=== PATIENT | female | born 1985 | race Two or more races ===

== ENCOUNTER 2021-03-29 06:52 | Emergency (ER) | payer OTHER ==
[2021-03-29 07:27] VITALS: BP 104/71; PULSE 97; TEMP 98; BMI 25.4
[2021-03-29] MEDS ORDERED: KETOROLAC TROMETHAMINE 30 MG/1 ML VIAL ONE (07:42)
[2021-03-29] MEDS ORDERED: KETOROLAC TROMETHAMINE 30 MG/1 ML VIAL IM ONE (08:10)
[2021-03-29] MEDS ORDERED: LIDOCAINE HCL 1%, 10 MG/ML (50 mL VIAL) SQ ONE (08:38)
== END 2021-03-29 08:30 | disposition home or self-care (01) ==
LOC: JER 06:52
PROC: 0W9N0ZZ Drainage of Female Perineum, Open Approach (ICD-10-PCS; principal; 2021-03-29)
PROC: 3E0233Z Introduction of Anti-inflammatory into Muscle, Percutaneous Approach (ICD-10-PCS; 2021-03-29)
DX: N76.4 Abscess of vulva (principal)
CPT/HCPCS: 99284-25

== ENCOUNTER 2021-03-31 10:39 | Emergency (ER) | payer OTHER ==
[2021-03-31 10:56] VITALS: BP 120/81; PULSE 87; TEMP 98.6; BMI 26.0
[2021-03-31] MEDS ORDERED: BACITRACIN 15 GM TUBE TOPICAL OINTMENT ONE (11:25)
[2021-03-31] MEDS ORDERED: BACITRACIN 15 GM TUBE TOPICAL OINTMENT TP ONE (11:29)
== END 2021-03-31 11:31 | disposition home or self-care (01) ==
LOC: JERFT 10:39 → JER 10:39 → JERFT 11:31
DX: Z48.00 Encounter for change or removal of nonsurgical wound dressing (principal)
CPT/HCPCS: 99281-25

== ENCOUNTER 2022-10-23 21:22 | Emergency (ER) | payer OTHER ==
[2022-10-23 22:11] VITALS: BP 118/79; PULSE 74; RESP 18; TEMP 98.1; BMI 23.6
[2022-10-23] MEDS ORDERED: ACETAMINOPHEN 500 MG TABLET (FP) PO ONE (22:26)
[2022-10-23] MEDS ORDERED: ACETAMINOPHEN 500 MG TABLET (FP) ONE (22:39)
[2022-10-23 22:58] LABS: URINE APPEARANCE CLEAR; URINE BILIRUBIN NEGATIVE (NEGATIVE); URINE COLOR YELLOW; URINE GLUCOSE (UA) NEGATIVE (NEGATIVE); URINE KETONE NEGATIVE (NEGATIVE); URINE LEUK ESTERASE NEGATIVE (NEGATIVE); URINE NITRITE NEGATIVE (NEGATIVE); URINE PROTEIN NEGATIVE (NEGATIVE); URINE UROBILINOGEN 0.2 mg/dL (0.2-1.0)
[2022-10-23 23:01] LABS: HCG,QUALITATIVE URINE Negative
[2022-10-23] MEDS ORDERED: SULFAMETHOXAZOLE/TRIMETHOPRIM 800MG/160MG D.S. TABLET PO ONE (23:12)
[2022-10-23] MEDS ORDERED: SULFAMETHOXAZOLE/TRIMETHOPRIM 800MG/160MG D.S. TABLET ONE (23:16)
== END 2022-10-23 23:45 | disposition home or self-care (01) ==
LOC: JERFT 21:22
PROC: 0U9MXZZ Drainage of Vulva, External Approach (ICD-10-PCS; principal; 2022-10-23)
DX: N76.4 Abscess of vulva (principal)
CPT/HCPCS: 81003; 84703; 87070; 87186; 87205; 99283-25